=== PATIENT | male | born 1955 | race Caucasian/White ===

== ENCOUNTER → 2017-05-28 | Outpatient (CLI) | payer BC | END | disposition home or self-care (01) | DX: M16.11 Unilateral primary osteoarthritis, right hip (principal); R26.2 Difficulty in walking, not elsewhere classified; M25.551 Pain in right hip; M25.651 Stiffness of right hip, not elsewhere classified; M62.81 Muscle weakness (generalized); Z74.1 Need for assistance with personal care | CPT/HCPCS: 97161 GP; 97165 GO; 97530 GP; 97535 GO ==

== ENCOUNTER 2017-06-09 22:05 | Inpatient (IN) | payer BC ==
[~2017-06-09] VITALS: Ht 175.3 cm; Wt 113.3 kg
[2017-06-10 09:30] VITALS: BP 144/80
[2017-06-10 14:01] LABS: HEMATOCRIT 37.5 % (38.0-50.0); HEMOGLOBIN 12.2 G/DL (12.5-16.6); MCH 29.5 PG (29.0-34.0); MCHC 32.5 G/DL (30.0-36.0); MCV 90.8 FL (86-99); PLATELET COUNT 131 K/uL (156-360); RBC DIS.WIDTH-SD 49.7 % (39-53); RED BLOOD COUNT 4.13 M/uL (4.00-5.50); WHITE BLOOD COUNT 7.7 K/uL (4.1-10.2)
[2017-06-10 14:54] VITALS: BP 114/61
[2017-06-10 19:52] VITALS: BP 127/66
[2017-06-11] VITALS (7 sets, daily range): BP systolic 114–138; BP diastolic 55–78
[2017-06-11 05:48] LABS: HEMATOCRIT 33.6 % (38.0-50.0); HEMOGLOBIN 11.2 G/DL (12.5-16.6); MCV 90.6 FL (86-99)
[2017-06-11 06:10] LABS: CHLORIDE 105 MEQ/L (99-109); CREATININE 0.8 MG/DL (0.6-1.3); GFR ESTIMATE (CALCULATED) > 59 mL/min/ (58.99-99999); GLUCOSE 166 mg/dL (70-99); POTASSIUM 4.6 MEQ/L (3.7-5.4); SODIUM 140 MEQ/L (136-147); UREA NITROGEN (BUN) 12 mg/dL (9-23)
[2017-06-12 00:12] VITALS: BP 127/65
[2017-06-12 04:20] VITALS: BP 124/63
[2017-06-12 08:00] VITALS: BP 120/67
[2017-06-12] MEDS ORDERED: SENNA PLUS TAB1 EACH PO (08:33)
[2017-06-12] MEDS ORDERED: ENDOCET 5-3251 EACH PO (08:34)
[2017-06-12] MEDS ORDERED: LOVENOX40 MG/0.4 SC (08:34)
[2017-06-12 12:13] VITALS: BP 122/57
[2017-06-12 18:19] VITALS: BP 139/63
== END 2017-06-12 17:18 | DRG 470 ==
LOC: ENRESERV 22:05 → 2SOUTH 06-10 08:55 → 3WEST 06-10 14:30 → 2SOUTH 06-10 15:42 → 3WEST 06-12 17:18
PROVIDERS: Orthopaedic Surgery
PROC: 0SR902A Replacement of Right Hip Joint with Metal on Polyethylene Synthetic Substitute, Uncemented, Open Approach (ICD-10-PCS; principal; 2017-06-10)
PROC: 5A09357 Assistance with Respiratory Ventilation, Less than 24 Consecutive Hours, Continuous Positive Airway Pressure (ICD-10-PCS; 2017-06-11)
DX: M16.11 Unilateral primary osteoarthritis, right hip (principal); Z96.642 Presence of left artificial hip joint; G47.33 Obstructive sleep apnea (adult) (pediatric); Z87.891 Personal history of nicotine dependence
CPT/HCPCS: 73501; 80048; 85014; 85018; 85027; 94660; 94799; J0131; J0690; J1100; J1200; J1650; J1885; J2250; J2405; J3010; J7030; J7050; J7120; S0020

== ENCOUNTER 2017-06-12 10:54 | Inpatient (IN) | payer BC ==
[~2017-06-12] VITALS: Ht 175.3 cm; Wt 120.9 kg
[~2017-06-12 10:54] MED LIST: ENDOCET 5-3251 EACH PO; LOVENOX40 MG/0.4 SC; SENNA PLUS TAB1 EACH PO
[2017-06-12 17:41] VITALS: BP 125/60
[2017-06-13 00:22] VITALS: BP 135/65
[2017-06-13 05:03] VITALS: BP 117/67
[2017-06-13 06:32] LABS: HEMATOCRIT 31.8 % (38.0-50.0); HEMOGLOBIN 10.2 G/DL (12.5-16.6); MCH 29.4 PG (29.0-34.0); MCHC 32.1 G/DL (30.0-36.0); MCV 91.6 FL (86-99); PLATELET COUNT 118 K/uL (156-360); RBC DIS.WIDTH-CV 15.8 % (11.8-14.6); RBC DIS.WIDTH-SD 51.3 % (39-53); RED BLOOD COUNT 3.47 M/uL (4.00-5.50); WHITE BLOOD COUNT 6.3 K/uL (4.1-10.2)
[2017-06-13 07:59] LABS: ALBUMIN 3.2 G/DL (3.2-4.8); ALKALINE PHOSPHATASE 48 IU/L (3-129); ALT (GPT) 14 IU/L (3-49); AST (GOT) 16 IU/L (2-34); CHLORIDE 106 MEQ/L (99-109); CREATININE 0.8 MG/DL (0.6-1.3); GFR ESTIMATE (CALCULATED) > 59 mL/min/ (58.99-99999); POTASSIUM 4.2 MEQ/L (3.7-5.4); SODIUM 140 MEQ/L (136-147); TOTAL BILIRUBIN 0.9 MG/DL (0.0-1.0); TOTAL PROTEIN 5.2 G/DL (6.4-8.3); UREA NITROGEN (BUN) 12 mg/dL (9-23)
[2017-06-13 08:13] LABS: GLUCOSE 107 mg/dL (70-99)
[2017-06-13 15:25] VITALS: BP 133/62
[2017-06-14 06:42] VITALS: BP 120/63
[2017-06-14 15:14] VITALS: BP 125/70
[2017-06-15 04:54] VITALS: BP 123/62
[2017-06-15 15:07] VITALS: BP 118/58
[2017-06-16 06:02] VITALS: BP 115/55
[2017-06-16 16:37] VITALS: BP 112/55
[2017-06-17 05:18] VITALS: BP 121/57
[2017-06-17 15:59] VITALS: BP 113/56
[2017-06-18 05:25] VITALS: BP 156/75
[2017-06-18 14:21] LABS: HEMATOCRIT 31.7 % (38.0-50.0); HEMOGLOBIN 10.3 G/DL (12.5-16.6); MCHC 32.5 G/DL (30.0-36.0); MCV 92.4 FL (86-99); PLATELET COUNT 146 K/uL (156-360); RBC DIS.WIDTH-CV 15.4 % (11.8-14.6); RBC DIS.WIDTH-SD 50.7 % (39-53); RED BLOOD COUNT 3.43 M/uL (4.00-5.50)
[2017-06-18 14:47] LABS: ALBUMIN 3.3 G/DL (3.2-4.8); ALKALINE PHOSPHATASE 52 IU/L (3-129); CHLORIDE 108 MEQ/L (99-109); CREATININE 0.8 MG/DL (0.6-1.3); GFR ESTIMATE (CALCULATED) > 59 mL/min/ (58.99-99999); GLUCOSE 109 mg/dL (70-99); POTASSIUM 4.2 MEQ/L (3.7-5.4); SODIUM 141 MEQ/L (136-147); TOTAL BILIRUBIN 0.8 MG/DL (0.0-1.0); UREA NITROGEN (BUN) 14 mg/dL (9-23)
[2017-06-18 14:53] LABS: ALT (GPT) 50 IU/L (3-49); AST (GOT) 32 IU/L (2-34); TOTAL PROTEIN 6.2 G/DL (6.4-8.3)
[2017-06-18 15:32] VITALS: BP 132/69
[2017-06-18] MEDS ORDERED: SENNA PLUS TAB1 EACH PO (19:19)
[2017-06-19 05:08] VITALS: BP 129/68
== END 2017-06-19 14:12 | DRG 554 ==
LOC: 3WEST 10:54 → ENPENDDIS 06-19 → 3WEST 06-19 14:12
PROVIDERS: Physical Medicine & Rehabilitation Pain Medicine
PROC: F07M7ZZ Manual Therapy Techniques Treatment of Musculoskeletal System - Whole Body (ICD-10-PCS; principal; 2017-06-12)
DX: M16.11 Unilateral primary osteoarthritis, right hip (principal); Z96.643 Presence of artificial hip joint, bilateral; G89.18 Other acute postprocedural pain; D62 Acute posthemorrhagic anemia; E83.51 Hypocalcemia; Z68.39 Body mass index [BMI] 39.0-39.9, adult; G47.33 Obstructive sleep apnea (adult) (pediatric); E66.9 Obesity, unspecified; D69.6 Thrombocytopenia, unspecified; M16.12 Unilateral primary osteoarthritis, left hip; M17.11 Unilateral primary osteoarthritis, right knee; Z82.49 Family history of ischemic heart disease and other diseases of the circulatory system; Z87.891 Personal history of nicotine dependence
CPT/HCPCS: 73560; 80053; 85027; 94660; 94799; 97110 GO; 97530 GP; J1650